=== PATIENT | male | born 1955 | race Caucasian/White ===

== ENCOUNTER 2017-03-18 20:35 | Inpatient (IN) | payer MEDICAID ==
[~2017-03-18] VITALS: Ht 170.2 cm; Wt 76.2 kg
[2017-03-18 21:40] LABS: BASOPHIL % 0.3 % (0-2); PLATELET COUNT 196 x10^3mcL (130-400); RED CELL DISTRIBUTION WIDTH 13.7 % (11.5-14.5)
[2017-03-18 21:52] LABS: CALCIUM 9.3 mg/dL (8.5-10.1); CARBON DIOXIDE 27.2 mmol/L (21-32); CHLORIDE SERUM 103 mmol/L (98-107); CREATININE SERUM 0.9 mg/dL (0.7-1.3); GFR1 > 60 mL/min; GLUCOSE SERUM 111 mg/dL (74-106); POTASSIUM SERUM 4.3 mmol/L (3.5-5.1); SODIUM SERUM 138 mmol/L (136-145)
[2017-03-18 21:56] LABS: ALBUMIN 3.9 g/dL (3.4-5.0); ALKALINE PHOSPHATASE 63 U/L (46-116); ALT/SGPT 84 U/L (16-63); AST/SGOT 44 U/L (15-37); BILIRUBIN TOTAL 0.25 mg/dL (0.20-1.00); LIPASE 242 IU/L (73-393); TOTAL PROTEIN, SERUM 7.8 g/dL (6.4-8.2)
[2017-03-18 21:58] LABS: CHOLESTEROL 228 mg/dL (<200); CHOLESTEROL/HDL RATIO 7.1; HDL CHOLESTEROL 32 mg/dL (40-60); TRIGLYCERIDES 358 mg/dL (<150)
[2017-03-18 22:04] LABS: T3 TOTAL 0.83 ng/mL
[2017-03-18 22:30] LABS: microscopic required? NO
[2017-03-18] MEDS ORDERED: FLO4 PO (22:39)
[2017-03-18 22:43] LABS: UA SPECIFIC GRAVITY 1.015 (1.005-1.035); urine erythrocyte NEGATIVE (NEGATIVE)
[2017-03-18 22:48] LABS: FREE T4 0.79 ng/dL (0.76-1.46); FREE THYROXINE INDEX 1.6 ug/dL (1.4-4.5); T4(THYROXINE) 4.9 ug/dL (4.7-13.3)
[2017-03-18 23:59] VITALS: BP 120/58
[2017-03-19 04:44] VITALS: BP 99/54
[2017-03-19 06:24] LABS: BASOPHIL % 0.5 % (0-2); PLATELET COUNT 175 x10^3mcL (130-400); RED CELL DISTRIBUTION WIDTH 13.2 % (11.5-14.5)
[2017-03-19 08:06] LABS: CALCIUM 8.1 mg/dL (8.5-10.1); CARBON DIOXIDE 24.8 mmol/L (21-32); CHLORIDE SERUM 107 mmol/L (98-107); CREATININE SERUM 0.9 mg/dL (0.7-1.3); GFR1 > 60 mL/min; GLUCOSE SERUM 122 mg/dL (74-106); POTASSIUM SERUM 3.7 mmol/L (3.5-5.1); SODIUM SERUM 139 mmol/L (136-145)
[2017-03-19 09:05] LABS: MAGNESIUM 2.4 mg/dL (1.8-2.4)
[2017-03-19 09:35] VITALS: BP 104/59
[2017-03-19 12:53] VITALS: BP 119/67
[2017-03-19] MEDS ORDERED: ATORVASTATIN CA40 M1 PO (17:24)
[2017-03-19] MEDS ORDERED: ASPIR 8181 MG PO (17:25)
[2017-03-19] MEDS ORDERED: METOPROLOL TART25 M1 PO (17:27)
[2017-03-19] MEDS ORDERED: TOPCARE OMEPRAZ20 MG PO (17:28)
[2017-03-19] MEDS ORDERED: IBUPROFEN400 MG PO (17:57)
[2017-03-19 18:09] VITALS: BP 119/67
[2017-03-19 18:29] VITALS: BP 94/55
== END 2017-03-19 19:21 | disposition home or self-care (01) | DRG 243 ==
LOC: ED 20:35 → DU 22:27
PROVIDERS: Family Medicine; Specialist
DX: K21.9 Gastro-esophageal reflux disease without esophagitis (principal); N17.0 Acute kidney failure with tubular necrosis; R00.1 Bradycardia, unspecified; E78.5 Hyperlipidemia, unspecified; N40.0 Benign prostatic hyperplasia without lower urinary tract symptoms; E02 Subclinical iodine-deficiency hypothyroidism
CPT/HCPCS: 83880; 84439; J7030

== ENCOUNTER 2017-08-23 03:21 | Emergency (ER) | payer MEDICAID ==
[~2017-08-23] VITALS: Ht 170.2 cm; Wt 75.3 kg
[~2017-08-23 03:21] MED LIST: ASPIR 8181 MG PO; ATORVASTATIN CA40 M1 PO; FLO4 PO; IBUPROFEN400 MG PO; METOPROLOL TART25 M1 PO; TOPCARE OMEPRAZ20 MG PO
[2017-08-23 03:26] VITALS: Ht 170.2 cm; Wt 75.3 kg
[2017-08-23 06:08] LABS: UA SPECIFIC GRAVITY 1.025 (1.005-1.035); microscopic required? YES; urine erythrocyte 3+ (NEGATIVE)
[2017-08-23 07:13] LABS: CALCIUM 8.3 mg/dL (8.5-10.1); CARBON DIOXIDE 24.9 mmol/L (21-32); CHLORIDE SERUM 103 mmol/L (98-107); CREATININE SERUM 0.9 mg/dL (0.7-1.3); GFR1 > 60 mL/min; GLUCOSE SERUM 135 mg/dL (74-106); POTASSIUM SERUM 3.9 mmol/L (3.5-5.1); SODIUM SERUM 137 mmol/L (136-145)
[2017-08-23 07:18] LABS: ALBUMIN 3.4 g/dL (3.4-5.0); ALKALINE PHOSPHATASE 78 U/L (46-116); BILIRUBIN TOTAL 0.23 mg/dL (0.20-1.00)
[2017-08-23 07:19] LABS: BASOPHIL % 0.5 % (0-2); PLATELET COUNT 195 x10^3mcL (130-400); RED CELL DISTRIBUTION WIDTH 13.3 % (11.5-14.5)
[2017-08-23 07:34] LABS: AST/SGOT 23 U/L (15-37)
[2017-08-23 07:46] LABS: ALT/SGPT 38 U/L (16-63)
[2017-08-23 07:55] VITALS: BP 131/74
== END 2017-08-23 07:55 | disposition home or self-care (01) ==
LOC: ED 03:21
PROVIDERS: Emergency Medicine
DX: R31.9 Hematuria, unspecified (principal); N39.0 Urinary tract infection, site not specified; E78.00 Pure hypercholesterolemia, unspecified
CPT/HCPCS: 36415

== ENCOUNTER 2017-09-21 09:52 | Emergency (ER) | payer MEDICAID ==
[~2017-09-21] VITALS: Ht 167.6 cm; Wt 74.4 kg
[2017-09-21 10:04] VITALS: BP 114/64; Ht 167.6 cm; Wt 74.4 kg
== END 2017-09-21 11:22 | disposition home or self-care (01) ==
LOC: ED 09:52
DX: R31.0 Gross hematuria (principal); E78.00 Pure hypercholesterolemia, unspecified

== ENCOUNTER 2017-09-26 23:07 | Emergency (ER) | payer MEDICAID ==
[~2017-09-26] VITALS: Ht 170.2 cm; Wt 71.3 kg
[2017-09-26 23:13] VITALS: Ht 170.2 cm; Wt 71.3 kg
[2017-09-27 00:19] VITALS: BP 126/71
== END 2017-09-27 00:19 | disposition home or self-care (01) ==
LOC: ED 23:07
DX: Z46.6 Encounter for fitting and adjustment of urinary device (principal); R33.9 Retention of urine, unspecified

== ENCOUNTER 2017-10-04 11:12 | Emergency (ER) | payer MEDICAID ==
[~2017-10-04] VITALS: Ht 170.2 cm; Wt 68.0 kg
[2017-10-04 11:21] VITALS: Ht 170.2 cm; Wt 68.0 kg
[2017-10-04 12:37] VITALS: BP 127/86
== END 2017-10-04 12:37 | disposition home or self-care (01) ==
LOC: ED 11:12
DX: R33.9 Retention of urine, unspecified (principal); E78.00 Pure hypercholesterolemia, unspecified

== ENCOUNTER 2018-05-25 21:38 | Emergency (ER) | payer MEDICAID | END 2018-05-25 22:46 | disposition home or self-care (01) | LOC: ED 21:38 ==

== ENCOUNTER 2018-09-10 18:39 | Inpatient (IN) | payer MEDICAID ==
[~2018-09-10] VITALS: Ht 165.1 cm; Wt 73.5 kg
[2018-09-10 18:47] VITALS: Ht 165.1 cm; Wt 73.5 kg
--- NOTE | 2018-09-10 18:51 | NUR ---
NO SIGNS OF DISTRESS. NAD NOTED
[2018-09-10 19:14] LABS: BASOPHIL % 0.4 % (0-2); PLATELET COUNT 196 x10^3mcL (130-400); RED CELL DISTRIBUTION WIDTH 13.9 % (11.5-14.5)
--- NOTE | 2018-09-10 19:15 | NUR ---
PT PRESENTED TO ED FOR MIDSTERNAL CHEST PAIN THAT RADIATES TO BUE, HEADACHE, "HEART BURN", GENERALIZED WEAKNESS, AND NAUSEA X 2 DAYS. PT DESCRIBES PAIN "PRESSURE" IN CHEST AND "NUMBNESS" IN BUE. PER DAUGHTER PT STATES "HE HAD A LOT OF HEARTBURN LAST NIGHT AND TOOK OMEPERAZOLE BUT IT DIDNT HELP". PT A&0X4, SPEAKING FULL CLEAR SENTENCES. BREATHING EVEN AND UNLABORED. CM AND [address] FAMILY AT BEDSIDE. AWAITING MSE. WILL CONTINUE TO MONITOR.
[2018-09-10 19:21] LABS: CARBON DIOXIDE 29.6 mmol/L (21-32); CHLORIDE SERUM 104 mmol/L (98-107); CREATININE SERUM 0.9 mg/dL (0.7-1.3); GFR1 > 60 mL/min; GLUCOSE SERUM 136 mg/dL (74-106); POTASSIUM SERUM 4.7 mmol/L (3.5-5.1); SODIUM SERUM 141 mmol/L (136-145)
[2018-09-10 19:25] LABS: ALBUMIN 3.7 g/dL (3.4-5.0); ALKALINE PHOSPHATASE 69 U/L (46-116); ALT/SGPT 57 U/L (16-63); AST/SGOT 27 U/L (15-37); BILIRUBIN TOTAL 0.3 mg/dL (0.20-1.00); TOTAL PROTEIN, SERUM 7.7 g/dL (6.4-8.2)
--- NOTE | 2018-09-10 19:25 | NUR ---
REPEAT EKG IN PROGRESS BY DENISE TONY. MSE COMPLETED BY DR MCCALL.
--- NOTE | 2018-09-10 20:50 | NUR ---
PT RESTING ON GURNEY IN NAD, BREATHING EVEN AND UNLABORED. PT A&0X4, SPEAKING FULL CLEAR SENTENCES. CM AND [address] WILL CONTINUE TO MONITOR.
--- NOTE | 2018-09-10 21:20 | NUR ---
PT MEDICATED PER MD ORDERS. PT A&0X4, SPEAKING FULL CLEAR SENTENCES. PT IN NAD, BREATHING EVEN AND UNLABORED. FAMILY AT BEDSIDE. BED IN LOWEST POSITION. WILL CM AND [address] WILL CONTINUE TO MONITOR.
--- NOTE | 2018-09-10 22:06 | NUR ---
REPORT GIVEN TO URIAH STILL.
[2018-09-10] MEDS ORDERED: TOPROL XL25 MG PO (22:08)
--- NOTE | 2018-09-10 22:19 | NUR ---
[facility] [place], ACCOMPANIED BY RN AND TRANSPORTER. PT A/A/O X 4, CALM, COOPERATIVE; C/O CONSTANT DULL H/A 5/10. GENERALIZED WEAKNESS, ABLE TO AMBULATE W/ SLOW, STEADY GAIT. ON TELE # 11, HR 58, SB, C/O CONSTANT DULL CHEST PAIN 2/10 RADIATING TO LEFT ARM. LUNGS CTAB, CHEST RISING EVENLY, R/A, 95%, C/O NON-PRODUCTIVE COUGH. IV SITE LH 20G, CDI. ORIENTED PT TO ROOM, BED CONTROLS, CALL LIGHT SYSTEM. SIDE RAILS UP X 2, BED IN LOW POSITION. WILL ENDORSE TO CHEKO KRUSE.
--- NOTE | 2018-09-10 22:20 | NUR ---
PT TRANSFERED TO TELE AT THIS TIME VIA [employer] ACCOMPANIED BY CHEKO SAENZ AND EMT CECILY. PT IN NAD, BREATHING EVEN AND UNLABORED. PT A&0X4, SPEAKING FULL CLEAR SENTENCES. PT AND FAMILY VERBALIZED UNDERSTANDING OF PLAN OF CARE.
[2018-09-10 23:20] VITALS: BP 105/60
--- NOTE | 2018-09-11 00:16 | NUR ---
PT IS RESTING IN BED WITH EYES CLOSED AT THIS TIME. NO ACUTE DISTRESS NOTED. PT HAS BEEN CALM AND COOPERATIVE WITH CARE. NO COMPLAINT OF PAIN AT THIS TIME. SAFETY AND COMFORT MEASURES MAINTAINED, BED IN LOWEST POSITION, CALL LIGHT WITHIN REACH. WILL CONTINUE TO MONITOR.
--- NOTE | 2018-09-11 02:05 | NUR ---
PT IS RESTING IN BED WITH EYES CLOSED, NO ACUTE DISTRESS NOTED, PT HAS BEEN CALM AND COOPERATIVE WITH CARE, NO S/S OF PAIN NOTED. SAFETY AND COMFORT MEASURES MAINTAINED, BED IN LOWEST POSITION, CALL LIGHT WITHIN REACH.
[2018-09-11 04:46] LABS: BASOPHIL % 0.3 % (0-2); PLATELET COUNT 170 x10^3mcL (130-400); RED CELL DISTRIBUTION WIDTH 13.8 % (11.5-14.5)
[2018-09-11 05:01] VITALS: BP 102/55
[2018-09-11 05:14] LABS: CALCIUM 8.1 mg/dL (8.5-10.1); CARBON DIOXIDE 27.9 mmol/L (21-32); CHLORIDE SERUM 105 mmol/L (98-107); CHOLESTEROL 199 mg/dL (<200); CREATININE SERUM 0.9 mg/dL (0.7-1.3); GFR1 > 60 mL/min; GLUCOSE SERUM 110 mg/dL (74-106); POTASSIUM SERUM 4.5 mmol/L (3.5-5.1); SODIUM SERUM 140 mmol/L (136-145); TRIGLYCERIDES 152 mg/dL (<150)
--- NOTE | 2018-09-11 05:20 | NUR ---
PT HAS RESTED IN LONG INTERVALS THROUGHOUT THE SHIFT. PT HAS BEEN ALERT AND ORIENTED X4, CALM AND COOPERATIVE WITH CARE. NO COMPLAINT OF PAIN AT THIS TIME. SAFETY AND COMFORT MEASURES MAINTAINED, BED IN LOWEST POSITION, CALL LIGHT WITHIN REACH. WILL ENDORSE CONTINUITY OF CARE TO THE ONCOMING RN.
[2018-09-11 05:21] LABS: CHOLESTEROL/HDL RATIO 6.9; HDL CHOLESTEROL 29 mg/dL (40-60)
[2018-09-11 09:24] VITALS: BP 126/69
--- NOTE | 2018-09-11 09:54 | NUR ---
AAO TIMES 4. TELE # 11 SB 49, HELD TOPROL. LUNGS CTA. NO SOB. O2 SAT ON RA 99%. BS'S ACTIVE TIMES 4. CARTER STRONG, BRP SELF. PERIPHERAL PULSES PALPABLE. NO EDEMA. COOPERATIVE. C/O PAIN TO STERNAL AREA WHEN IT IS PALPATED.
[2018-09-11 12:15] LABS: microscopic required? NO
[2018-09-11 12:27] VITALS: BP 102/62
[2018-09-11 12:40] LABS: AMPHETAMINE QUAL UR NONE DETECTED (See below); UA SPECIFIC GRAVITY 1.015 (1.005-1.035); urine erythrocyte NEGATIVE (NEGATIVE)
[2018-09-11 16:47] VITALS: BP 114/61
--- NOTE | 2018-09-11 19:41 | NUR ---
PT. AWAKE, ALERT, ORIENTED X4. DENIES HEADACHE OR DIZZINESS. BREATH SOUNDS CLEAR THROUGHOUT LUNG ESPINOSA, RESP. EVEN, UNLABORED. NO SOB NOTED. PT. ON RA. SINUS MAKENNA ON MONITOR 311. DENIES CHEST PAIN. NO EDEMA TO EXTREMITIES. PEDAL PULSES STRONG KYLE. ABD. SOFT AND ROUND, BOWEL SOUNDS ACTVIE. FAMILY AT BEDSIDE. CALL LIGHT WITHIN REACH.
[2018-09-11 20:40] VITALS: BP 102/58
--- NOTE | 2018-09-11 23:48 | NUR ---
PT. RESTING QUIETLY, EYES CLOSED. APPEARS COMFORTABLE. CALL LIGHT REMAINS WITHIN REACH.
[2018-09-12 05:31] VITALS: BP 101/51
--- NOTE | 2018-09-12 06:13 | NUR ---
PT. HAD UNEVENTFUL NIGHT. NO CHESTPAIN OR COMPLAINTS. REMAINS SNIUS MAKENNA ON THE MONITOR. IV SITE INTACT. CALL LIGHT WITHIN REACH. WILL ENDORSE PT. CARE TO INCOMING NURSE.
[2018-09-12 08:26] VITALS: BP 116/59
[2018-09-12] MEDS ORDERED: LIPI20 PO (10:22)
[2018-09-12 12:27] VITALS: BP 123/85
[2018-09-12 12:30] VITALS: BP 105/60
--- NOTE | 2018-09-12 15:58 | NUR ---
REMOVED SALINE L[employer] ANGIO INTACT. GAVE HIM AND HIS FAMILY DISCHARGE INSTRUCTIONS AND PRESCRIPTION. THEY VERBALIZED "I UNDERSTAND" TO ALL INSTRUCTIONS, AND PATIENT SIGNED THEM. NO C/O PAIN. AAO TIMES 4.
== END 2018-09-12 16:10 | disposition home or self-care (01) | DRG 198 ==
LOC: ED 18:39 → DU 21:03
PROVIDERS: Emergency Medicine; ADMIT Internal Medicine
DX: R07.89 Other chest pain (principal); I25.2 Old myocardial infarction; M32.9 Systemic lupus erythematosus, unspecified; E83.51 Hypocalcemia; E78.5 Hyperlipidemia, unspecified; Z68.26 Body mass index [BMI] 26.0-26.9, adult
CPT/HCPCS: 83880; G0378; Q0092

== ENCOUNTER 2019-09-20 18:06 | Emergency (ER) | payer MEDICARE, MEDICAID ==
[~2019-09-20] VITALS: Ht 170.2 cm; Wt 72.1 kg
[~2019-09-20 18:06] MED LIST changes: +LIPI20 PO; +TOPROL XL25 MG PO
[2019-09-20 18:30] VITALS: Ht 170.2 cm; Wt 72.1 kg
[2019-09-20 20:53] VITALS: BP 116/74
== END 2019-09-20 20:53 | disposition home or self-care (01) ==
LOC: ED 18:06
DX: T63.391A Toxic effect of venom of other spider, accidental (unintentional), initial encounter (principal); Y92.89 Other specified places as the place of occurrence of the external cause